=== PATIENT | female | born 1995 | race Caucasian/White ===

== ENCOUNTER 2017-09-25 13:43 | Emergency (ER) | payer OTHER ==
[~2017-09-25] VITALS: Ht 154.9 cm; Wt 64.9 kg
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
[2017-09-25] MEDS ORDERED: IBUPROFEN600 M1 PO (16:58)
[2017-09-25 17:03] VITALS: BP 119/64
== END 2017-09-25 17:04 ==
LOC: ERH 13:43
DX: S29.012A Strain of muscle and tendon of back wall of thorax, initial encounter (principal); V89.2XXA Person injured in unspecified motor-vehicle accident, traffic, initial encounter; Y92.411 Interstate highway as the place of occurrence of the external cause